=== PATIENT | female | born 1990 | race Asian ===

== ENCOUNTER 2019-05-01 21:41 | Emergency (ER) | payer MEDICAID ==
[~2019-05-01] VITALS: Ht 165.1 cm; Wt 66.7 kg
[2019-05-01 21:47] VITALS: BP_SYST 117
--- NOTE | 2019-05-01 23:08 | NUR ---
Patient to ER bed 4 to gown for evaluation. Side rails up. Report given to BOO KEENAN.
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
[2019-05-02 02:00] VITALS: BP_SYST 117
--- NOTE | 2019-05-02 02:00 | NUR ---
Patient given written and verbal discharge instructions and verbalizes understanding. ER DR POLA MCLEAN discussed with patient the results and treatment provided. Patient in stable condition. ID arm band removed. Rx of IBUPROFEN given. Patient educated on pain management and to follow up with PMD. Pain Scale 2/10. Opportunity for questions provided and answered. Medication side effect fact sheet provided.
== END 2019-05-02 02:00 | disposition home or self-care (01) ==
LOC: SED 21:41
DX: S43.402A Unspecified sprain of left shoulder joint, initial encounter (principal); V43.52XA Car driver injured in collision with other type car in traffic accident, initial encounter; Y93.89 Activity, other specified; Y92.410 Unspecified street and highway as the place of occurrence of the external cause; Y99.8 Other external cause status
CPT/HCPCS: 73030; 73590-TC; 99283